=== PATIENT | male | born 1960 | race Caucasian/White ===

== ENCOUNTER 2016-11-11 04:35 | Emergency (ER) | payer OTHER ==
[~2016-11-11] VITALS: Ht 170.2 cm; Wt 72.0 kg
[2016-11-11 04:38] VITALS: Ht 170.2 cm; Wt 72.0 kg
[2016-11-11 05:45] LABS: BASOPHILS % 0.2 % (0.0-2.0); EOSINOPHILS % 0.2 % (0.0-7.0); HEMATOCRIT 43.9 % (42.0-52.0); HEMOGLOBIN 14.6 g/dl (14.0-18.0); LYMPHOCYTES # 1.5 10^3/ul (0.8-2.9); LYMPHOCYTES % 10.4 % (15.0-51.0); MEAN CORPUSCULAR HEMOGLOBIN 29.9 pg (29.0-33.0); MEAN CORPUSCULAR HGB CONC 33.3 g/dl (32.0-37.0); MEAN PLATELET VOLUME 12.5 fl (7.4-10.4); MONOCYTES % 7.1 % (0.0-11.0); NEUTROPHILS % 81.8 % (39.0-77.0); PLATELET COUNT 190 10^3/UL (140-415); RED BLOOD COUNT 4.88 10^6/ul (4.70-6.10); RED CELL DISTRIBUTION WIDTH 12.3 % (11.5-14.5); WHITE BLOOD COUNT 13.9 10^3/ul (4.8-10.8)
[2016-11-11] MEDS ORDERED: ONDANSETRON 4 MG INJ IV STA (05:50)
[2016-11-11] MEDS ORDERED: morphine 4 MG/ML VIAL IV STA (05:50)
[2016-11-11 06:06] LABS: ADD UMIC YES; UR ASCORBIC ACID NEGATIVE (NEGATIVE); UR BILIRUBIN (Dip) NEGATIVE (NEGATIVE); UR BLOOD (Dip) 3+ mg/dL (NEGATIVE); UR CLARITY SLIGHTLY CLOUDY (CLEAR); UR COLOR YELLOW (YELLOW); UR GLUCOSE (Dip) NEGATIVE (NEGATIVE); UR KETONES (Dip) NEGATIVE (NEGATIVE); UR LEUKOCYTE ESTERASE (Dip) NEGATIVE Leu/ul (NEGATIVE); UR MUCUS MODERATE /HPF (NONE SEEN); UR NITRITE (Dip) NEGATIVE (NEGATIVE); UR RBC 151 /HPF (0-5); UR SPECIFIC GRAVITY (Dip) 1.013 (1.003-1.030); UR TOTAL PROTEIN (Dip) NEGATIVE (NEGATIVE); UR UROBILINOGEN (Dip) NEGATIVE (NEGATIVE)
[2016-11-11 06:16] LABS: ALBUMIN 3.9 g/dl (3.3-4.9); ALBUMIN/GLOBULIN RATIO 1.3; BILIRUBIN,INDIRECT 0.4 mg/dl (0-1.1); BILIRUBIN,TOTAL 0.4 mg/dl (0.2-1.3); CREATININE 1.12 mg/dl (0.61-1.24); POTASSIUM 3.7 mmol/L (3.5-5.1); TOTAL PROTEIN 6.9 g/dl (6.1-8.1)
--- NOTE | 2016-11-11 06:31 | RADRPT ---
PROCEDURE: CT Abdomen and pelvis without contrast. CLINICAL INDICATION: Abdominal pain. TECHNIQUE: CT scan of the abdomen and pelvis was performed on a multi-detector high-resolution CT scanner. Contiguous axial images were obtained from the lung bases to the ischial tuberosities wit hout intravenous contrast. Coronal and sagittal reformatted images were also obtained. Images were reviewed on the PACS workstation. One or more of the following dose reduction techniques were used: - Automated exposure control. - Adjustment of the mA and/or kV according to patient size. - Use of iterative reconstruction technique. Exam CTD/vol = 8.14 mGy. Total exam DLP = 499.13 mGy-cm. COMPARISON: 05/06/2014. FINDINGS: Evaluation of the lung bases demonstrates mild bibasilar atelectasis. There is a calcified granuloma within the right middle lobe. Abdomen: The liver is normal in size. There is no focal mass or dilatation of the biliary tree. T he gallbladder is not distended. The spleen, pancreas and bilateral adrenal glands are within seng l limits. Bilateral kidneys are normal in size with left renal cysts. There are multiple punctate 1 mm calculi within the right kidney. There is a calculus within the mid to lower pole of the left kidney measuring 11 x 8 mm. There is mild left-sided hydronephrosis. There is a calculus at the le ft ureteropelvic junction measuring 5 x 3 mm. There is no retroperitoneal adenopathy. The abdomina l aorta is of normal caliber with minimal scattered atherosclerotic calcifications. There is moderate retained stool within the right colon. There is no bowel obstruction or free air. A normal appendix is identified. There is no diverticulosis or diverticulitis. There is trace fr ee fluid within the left lower quadrant. Pelvis: The bladder is unremarkable. The prostate and seminal vesicles are within normal limits. There is no significant pelvic adenopathy or free fluid. Evaluation of the osseous structures demonstrates no suspicious lytic or blastic lesion. IMPRESSION: Left ureteropelvic junction and 5 x 3 mm calculus with mild left-sided hydronephrosis. Bilateral renal calculi. Moderate retained stool within the right colon. Trace free fluid within the left lower quadrant. Mild bibasilar atelectasis. Left renal cysts. Minimal vascular calcifications reflective of atherosclerosis. .Bryce Weldon MD, MD Date Time Electronically viewed and signed by .Bryce Weldon MD, MD on 11/11/2016 06:30 .T/
[2016-11-11] MEDS ORDERED: HYDROmorphONE 1 MG/ML SYG IV STA (06:42)
[2016-11-11] MEDS ORDERED: KETOROLAC 30 MG INJ IV STA (06:44)
[2016-11-11] MEDS ORDERED: TRAM50TA2 PO (07:31)
[2016-11-11] MEDS ORDERED: IBUP-1542 PO (07:31)
[2016-11-11] MEDS ORDERED: DOCU-144 PO (07:31)
[2016-11-11 08:10] VITALS: BP 105/73; PULSE 74; RESP 18; TEMP 98.2
--- NOTE | 2016-11-11 08:31 | ERD ---
ER Documentation Chief Complaint Date/Time DATE: 11/11/16 TIME: 08:29 Chief Complaint left flank pain x 2 days HPI Patient is a 56-year-old male who presents with flank pain. The patient has left-sided flank pain which started 3 weeks ago but became much worse yesterday. He describes the pain as a 9 out of 10 and sharp. Nothing made it better or worse. He tried Tylenol without help. Upon review of old medical records the patient one previous visit to the ER in 2014. He is taking Flomax for the past 2 weeks and has an appointment scheduled with a urologist who he does not know the name of on and no sooner. ROS All systems reviewed and are negative except as per history of present illness. Medications Home Meds Active Scripts Docusate Sodium* (Colace*) 100 Mg Capsule, 100 MG PO TID, #30 CAP Prov:KORTNEY GALAN MD 11/11/16 Ibuprofen* (Motrin*) 600 Mg Tab, 600 MG PO Q6H Y for PAIN AND OR ELEVATED TEMP, #30 TAB Prov:KORTNEY GALAN MD 11/11/16 Tramadol HCl (Tramadol HCl) 50 Mg Tablet, 50 MG PO Q6, #20 TAB Prov:KORTNEY GALAN MD 11/11/16 Allergies Allergies: Coded Allergies: Penicillins (Verified Allergy, Unknown, 05/06/14) PMhx/Soc History of Surgery: Yes (right inguinal mesh) Anesthesia Reaction: No Hx Neurological Disorder: No Hx Respiratory Disorders: No Hx Cardiac Disorders: No Hx Psychiatric Problems: No Hx Miscellaneous Medical Probl: No Hx Alcohol Use: No Hx Substance Use: No Hx Tobacco Use: No Smoking Status: Never smoker FmHx Family History: diabetes Physical Exam Vitals Vital Signs Date Time Temp Pulse Resp B/P Pulse Ox O2 Delivery O2 Flow Rate FiO2 11/11/16 06:47 67 14 114/89 98 Room Air 11/11/16 04:38 98.4 76 20 112/77 98 Physical Exam Const: Moderate distress secondary to pain Head: Atraumatic Eyes: Normal Conjunctiva ENT: Normal External Ears, Nose and Mouth. Neck: Full range of motion..~ No meningismus. Resp: Clear to auscultation bilaterally Cardio: Regular rate and rhythm, no murmurs Abd: Soft, non tender, non distended. Normal bowel sounds Skin: No petechiae or rashes Back: No midline or flank tenderness Ext: No cyanosis, or edema Neur: Awake and alert Psych: Normal Mood and Affect Result Diagram: 11/11/16 0525 11/11/16 0525 Results 24 hrs Laboratory Tests Test 11/11/16 05:15 11/11/16 05:25 Urine Color YELLOW Urine Clarity SLIGHTLY CLOUDY Urine pH 5.0 Urine Specific Kemp 1.013 Urine Ketones NEGATIVEmg/dL Urine Nitrite NEGATIVEmg/dL Urine Bilirubin NEGATIVEmg/dL Urine Urobilinogen NEGATIVEmg/dL Urine Leukocyte Esterase NEGATIVELeu/ul Urine Microscopic RBC 151/HPF Urine Microscopic WBC 5/HPF Urine Mucus MODERATE/HPF Urine Hemoglobin 3+mg/dL Urine Glucose NEGATIVEmg/dL Urine Total Protein NEGATIVEmg/dl White Blood Count 13.910^3/ul Red Blood Count 4.8810^6/ul Hemoglobin 14.6g/dl Hematocrit 43.9% Mean Corpuscular Volume 90.0fl Mean Corpuscular Hemoglobin 29.9pg Mean Corpuscular Hemoglobin Concent 33.3g/dl Red Cell Distribution Width 12.3% Platelet Count 12733^3/UL Mean Platelet Volume 12.5fl Neutrophils % 81.8% Lymphocytes % 10.4% Monocytes % 7.1% Eosinophils % 0.2% Basophils % 0.2% Nucleated Red Blood Cells % 0.0/100WBC Neutrophils # (Manual) 11.410^3/ul Lymphocytes # 1.510^3/ul Monocytes # 1.010^3/ul Eosinophils # 0.010^3/ul Basophils # 0.010^3/ul Nucleated Red Blood Cells # 0.010^3/ul Sodium Level 141mmol/L Potassium Level 3.7mmol/L Chloride Level 104mmol/L Carbon Dioxide Level 26mmol/L Anion Gap 15 Blood Urea Nitrogen 13mg/dl Creatinine 1.12mg/dl Glucose Level 97mg/dl Calcium Level 9.0mg/dl Total Bilirubin 0.4mg/dl Direct Bilirubin 0.00mg/dl Indirect Bilirubin 0.4mg/dl Aspartate Amino Transf (AST/SGOT) 26IU/L Alanine Aminotransferase (ALT/SGPT) 34IU/L Alkaline Phosphatase 63IU/L Total Protein 6.9g/dl Albumin 3.9g/dl Globulin 3.00g/dl Albumin/Globulin Ratio 1.30 Lipase 207U/L Current Medications Medications (Trade) Dose Ordered Sig/Neha Route PRN Reason Start Time Stop Time Status Last Admin Dose Admin Morphine Sulfate (morphine) 4 mg ONCE STAT IV 11/11/16 05:50 11/11/16 05:51 DC 11/11/16 06:15 Ondansetron HCl (Zofran Inj) 4 mg ONCE STAT IV 11/11/16 05:50 11/11/16 05:51 DC 11/11/16 06:15 Hydromorphone HCl (Dilaudid) 1 mg ONCE STAT IV 11/11/16 06:42 11/11/16 06:43 DC 11/11/16 06:45 Ketorolac Tromethamine (Toradol) 30 mg ONCE STAT IV 11/11/16 06:44 11/11/16 06:46 DC 11/11/16 06:50 Procedures/MDM CT scan of the abdomen pelvis shows 5 x 3 mm kidney stone in the left ureter per radiology. Patient is a 56-year-old male presents with left-sided flank pain. He was found to have acute kidney stone on the left side which is likely the cause of his pain. At this point I doubt appendicitis, cholecystitis, pink otitis, or bowel obstruction. There is no sign of infected kidney stone. I spoke with Dr. Griffith who is the urologist examination proctor. He can see the patient in the office tomorrow morning for reevaluation. The patient will be given information for kidney stone. I do not believe he requires admission at this time. He will be given a prescription for tramadol, ibuprofen, and Colace. He should continue to take his Flomax as well. He was provided with copies of the laboratory studies and CT scan report prior to discharge. Departure Diagnosis: Primary Impression: Flank pain Additional Impression: Kidney stone Condition: Fair Patient Instructions: Kidney Stone W/ Colic Referrals: ANKITA GRIFFITH MD Additional Instructions: See Dr. Griffith tomorrow for reevaluation. KORTNEY GALAN MD Nov 11, 2016 08:31
== END 2016-11-11 08:10 | disposition home or self-care (01) ==
LOC: E/R 04:35
DX: R10.9 Unspecified abdominal pain (principal); N20.0 Calculus of kidney
CPT/HCPCS: 36415; 74176; 80053; 81001; 83690; 85025; 96374; 96375; 99285; J1170; J1885; J2270; J2405